=== PATIENT | male | born 1970 | race Caucasian/White ===

== ENCOUNTER 2019-12-03 10:34 | Emergency (ER) | payer OTHER ==
[~2019-12-03] VITALS: Ht 167.6 cm; Wt 77.0 kg
[2019-12-03 11:02] VITALS: BP 139/94
== END 2019-12-03 12:31 | disposition home or self-care (01) ==
LOC: ER 10:35
DX: M25.562 Pain in left knee (principal); V87.7XXA Person injured in collision between other specified motor vehicles (traffic), initial encounter; Y93.89 Activity, other specified; Y92.488 Other paved roadways as the place of occurrence of the external cause; Y99.8 Other external cause status
CPT/HCPCS: 99282